=== PATIENT | female | born 1980 | race Caucasian/White ===

== ENCOUNTER 2017-01-11 16:22 | Emergency (ER) | payer BC ==
[2017-01-11 16:22] VITALS: BMI 34.3
[2017-01-11 16:34] VITALS: RESP 18; TEMP 98.1
[2017-01-11] MEDS ORDERED: Sodium Chloride 0.9% 1,000 ML IV ONE (17:00)
--- NOTE | 2017-01-11 17:05 | C.PDOC ---
History Of Present Illness 36 y/o female presents to emergency department with complaint of headache for the last few days. Patient states it comes and goes, left sided, and described as pressure type pain. She notes some relief w/ Motrin. Patient seen in ER for similar complaints (05/25/16) with negative CT and workup at that time, treated with Toradol and Reglan with relief. Patient reports 2 brothers w/ history of migraines. Otherwise, patient denies visual changes, nausea, vomiting, fever, neck pain, new weakness or numbness, or changes in appetite. Time Seen by Provider: 01/11/17 16:43 Chief Complaint (Nursing): Headache History Per: Patient History/Exam Limitations: no limitations Onset/Duration Of Symptoms: Days Current Symptoms Are (Timing): Still Present Quality: "Pain" Preceeding Symptoms: None Associated Symptoms: denies: Nausea, Vomiting, Extremity Weakness Recent travel outside of the [place]: No Past Medical History Reviewed: Historical Data, Nursing Documentation, Vital Signs Vital Signs: Last Vital Signs Temp 98.1 F 01/11/17 18:43 Pulse 72 01/11/17 18:43 Resp 18 01/11/17 18:43 BP 114/71 01/11/17 18:43 Pulse Ox 96 01/11/17 18:43 - [facility] Procedures UTERINE LES DESTRUCT NEC (11/04/13) Family History: States: Unknown Family Hx - Social History Hx Tobacco Use: No Hx Alcohol Use: No Hx Substance Use: No - Immunization History Hx Tetanus Toxoid Vaccination: Yes Hx Influenza Vaccination: Yes Hx Pneumococcal Vaccination: No Review Of Systems Except As Marked, All Systems Reviewed And Found Negative. Constitutional: Negative for: Fever, Chills Cardiovascular: Negative for: Chest Pain Respiratory: Negative for: Cough, Shortness of Breath, Wheezing Gastrointestinal: Negative for: Nausea, Vomiting Musculoskeletal: Negative for: Neck Pain Skin: Negative for: Rash Neurological: Positive for: Headache. Negative for: Weakness, Numbness, Dizziness Physical Exam - Physical Exam Appears: Non-toxic, No Acute Distress Skin: Normal Color, Warm, Dry Head: Atraumatic, Normacephalic Eye(s): bilateral: Normal Inspection, PERRL, EOMI Chest: Symmetrical Cardiovascular: Rhythm Regular Respiratory: Normal Breath Sounds, No Rales, No Rhonchi, No Wheezing Gastrointestinal/Abdominal: Soft, No Tenderness Back: Normal Inspection Extremity: Normal ROM Neurological/Psych: Oriented x3, Normal Speech, Normal Motor, Normal Sensation ED Course And Treatment - Laboratory Results Result Diagrams: 01/11/17 17:18 01/11/17 17:18 Lab Interpretation: No Acute Changes O2 Sat by Pulse Oximetry: 100 (RA) Pulse Ox Interpretation: Normal Progress Note: Toradol, Reglan, and IVFs given. Labs ordered and reviewed. Reevaluation Time: 19:09 Reassessment Condition: Improved (Patient now pain free) Disposition Counseled Patient/Family Regarding: Studies Performed, Diagnosis, Need For Followup, Rx Given - Disposition Referrals: [facility] [place] [Outside] Disposition: HOME/ ROUTINE Disposition Time: 19:10 Condition: IMPROVED Prescriptions: Ibuprofen [Motrin Tab] 600 mg PO QID PRN #20 tab PRN Reason: Pain, Severe (8-10) Instructions: Acute Headache (ED) Print Language: ESTONIAN - Clinical Impression Clinical Impression: Headache - Scribe Statement The provider has reviewed the documentation as recorded by the Nadiaibelaine Johnson All medical record entries made by the Nadiaibelaine were at my direction and personally dictated by me. I have reviewed the chart and agree that the record accurately reflects my personal performance of the history, physical exam, medical decision making, and the department course for this patient. I have also personally directed, reviewed, and agree with the discharge instructions and disposition.
[2017-01-11] MEDS ORDERED: Sodium Chloride 0.9% 1,000 ML ONE (17:13)
[2017-01-11 17:25] LABS: BASO # 0.1 K/uL (0.0-0.2); BASO % 0.8 % (0.0-2.0); EOS # 0.1 K/uL (0.0-0.7); EOS % 1.9 % (0.0-4.0); HEMATOCRIT 37.9 % (34.0-47.0); LYMPH # 3.4 K/uL (1.0-4.3); LYMPH % 46.7 % (20.0-40.0); MEAN CELL VOLUME 90.6 fL (81.0-99.0); MEAN CORPUSCULAR HEMOGLOBIN 30.3 pg (27.0-31.0); MEAN CORPUSCULAR HGB CONC 33.5 g/dL (33.0-37.0); MONO # 0.6 K/uL (0.0-0.8); RED CELL DISTRIBUTION WIDTH 12.5 % (11.5-14.5); WHITE BLOOD COUNT 7.4 K/uL (4.8-10.8)
[2017-01-11 17:29] LABS: CHLORIDE 102 mmol/L (98-107); SODIUM 140 mmol/L (132-148)
[2017-01-11 17:31] LABS: AST/SGOT 44 U/L (14-36); BILIRUBIN,TOTAL 0.4 mg/dL (0.2-1.3); CARBON DIOXIDE 26 mmol/L (22-30); GFR AFRICAN-AMERICAN > 60
[2017-01-11 17:32] LABS: ALB/GLOB RATIO 1.2 (1.0-2.1); ALKALINE PHOSPHATASE 64 U/L (38-126); ALT/SGPT 71 U/L (9-52); BLOOD UREA NITROGEN 21 mg/dL (7-17); GLUCOSE,RANDOM 94 mg/dL (65-105); TOTAL PROTEIN 7.4 g/dL (6.3-8.3)
[2017-01-11 18:44] VITALS: BP 114/71; PULSE 72
[2017-01-11 19:12] VITALS: O2SAT 100
== END 2017-01-11 19:19 | disposition home or self-care (01) ==
LOC: C.ER 16:22
DX: R51 Headache (principal)
CPT/HCPCS: 80053; 84703; 85025; 96361; 96374; 96375; 99284; J1885; J2765; J7040